=== PATIENT | male | born 1960 | race Caucasian/White ===

== ENCOUNTER 2017-02-03 11:30 | Emergency (ER) | payer MEDICARE ==
[2017-02-03 11:46] VITALS: BP 110/62
--- NOTE | 2017-02-03 12:22 | UC ---
Skin Complaint HPI - HPI Summary HPI Summary: Patient presents s/p presumed tick bite on Monday which he tried to take off himself with tweezers. He then went to his PCP who could not actually see him, but did call in doxycycline 200 mg and the patient did take it. He comes in because he is not sure if he got the tick out. He denies any rashes, joint pain , fever, night sweats since the bite. - History of Current Complaint Chief Complaint: UCSkin Time Seen by Provider: 02/03/17 12:05 Stated Complaint: TICK BITE Hx Obtained From: Patient Onset/Duration: Sudden Onset Skin Exposure Onset/Duration: Days Ago Location: Discrete - right side Aggravating Factor(s): Nothing Alleviating Factor(s): Nothing Associated Signs & Symptoms: Positive: Negative - Allergy/Home Medications Allergies/Adverse Reactions: Allergies Allergy/AdvReac Type Severity Reaction Status Date / Time Epinephrine Allergy Severe See Comment Verified 02/03/17 11:42 Bee Stings Allergy Intermediate Shortness Uncoded 02/03/17 11:42 of Breath Review of Systems Constitutional: Negative Skin: Negative Eyes: Negative ENT: Negative Respiratory: Negative Cardiovascular: Negative Gastrointestinal: Negative Genitourinary: Negative Motor: Negative Neurovascular: Negative Musculoskeletal: Negative Neurological: Negative Psychological: Negative All Other Systems Reviewed And Are Negative: Yes PMH/Surg Hx/FS Hx/Imm Hx Previously Healthy: Yes - Surgical History Surgical History: Yes Surgery Procedure, Year, and Place: rhinoseptoplasty - Family History Known Family History: Positive: None - Social History Occupation: Employed Full-time Lives: Alone Alcohol Use: None Substance Use Type: Marijuana Substance Use Comment - Amount & Last Used: "I smoke a bowl to sleep at night" Smoking Status (MU): Heavy Every Day Tobacco Smoker Type: Cigarettes Amount Used/How Often: 1 ppd Household Exposure Type: Cigarettes - Immunization History Most Recent Influenza Vaccination: fall and received pneumonia shot at thsat time. Most Recent Tetanus Shot: states will be do soon will check with md willard. Most Recent Pneumonia Vaccination: last fall 2012 Physical Exam Triage Information Reviewed: Yes Appearance: Well-Appearing Vital Signs: Initial Vital Signs Temp 98 F 02/03/17 11:44 Pulse 74 02/03/17 11:44 Resp 16 02/03/17 11:44 BP 110/62 02/03/17 11:44 Pulse Ox 100 02/03/17 11:44 Vital Signs Reviewed: Yes Eye Exam: Normal ENT Exam: Normal Neck exam: Normal Neck: Positive: 1 Respiratory Exam: Normal Cardiovascular Exam: Normal Musculoskeletal Exam: Normal Neurological Exam: Normal Psychological Exam: Normal Skin Exam: Normal Skin: Positive: Other - dried brown scab on right side, without tick. without erythema, induration, flucuance. periwound margins pink. no erythma migran. Course/Dx - Course Course Of Treatment: Patient presents s/p tick bite which he removed. He has taken doxycycline 200 mg once. He presents with a healing scab, and no clincial evidence of lymes disease. Lyme titer and rapid abdet obtained and pending. Discharge home in stable condition. told to have repeat lyme titer in one month at PCP. - Differential Diagnoses - Skin Complaint Differential Diagnoses: Other - tick bite - Diagnoses Provider Diagnoses: tick bite Discharge - Discharge Plan Condition: Stable Disposition: HOME Patient Education Materials: Tick Bite (ED) Referrals: Krish Willard MD [Primary Care Provider] -
== END 2017-02-03 12:24 | disposition home or self-care (01) ==
LOC: UCEAST 11:30
DX: S10.96XA Insect bite of unspecified part of neck, initial encounter (principal); W57.XXXA Bitten or stung by nonvenomous insect and other nonvenomous arthropods, initial encounter; Y92.9 Unspecified place or not applicable; Z11.4 Encounter for screening for human immunodeficiency virus [HIV]; Z88.8 Allergy status to other drugs, medicaments and biological substances; F17.210 Nicotine dependence, cigarettes, uncomplicated
CPT/HCPCS: 36415; 86618; 86703; 99211; G0463

== ENCOUNTER 2017-02-04 08:49 | Emergency (ER) | payer MEDICARE ==
[2017-02-04 09:04] VITALS: BP 131/80
--- NOTE | 2017-02-04 10:33 | UC ---
Upper Extremity HPI - HPI Summary HPI Summary: Contusion on right forearm ---began the day after having blood drawn - History of Current Complaint Chief Complaint: UCSkin Stated Complaint: SWOLLEN ARM Time Seen by Provider: 02/04/17 10:32 Hx Obtained From: Patient Onset/Duration: Sudden Onset, Lasting Days - 1 Severity Initially: Mild Severity Currently: Mild Pain Intensity: 2 Pain Scale Used: 0-10 Numeric Location Of Pain: Is Discrete @ - right forearm Character: Aching Aggravating Factor(s): Nothing Alleviating Factor(s): Nothing Associated Signs And Symptoms: Positive: Bruising Related History: Dominant Hand Right - Allergies/Home Medications Allergies/Adverse Reactions: Allergies Allergy/AdvReac Type Severity Reaction Status Date / Time Epinephrine Allergy Severe See Comment Verified 02/04/17 08:57 Bee Stings Allergy Intermediate Shortness Uncoded 02/04/17 08:57 of Breath Home Medications: Home Medications Albuterol HFA INHALER* [Ventolin HFA Inhaler*] 2 inhaler [facility] QID PRN 02/04/17 [ History Confirmed 02/04/17] PMH/Surg Hx/FS Hx/Imm Hx Previously Healthy: No Respiratory History: Asthma Psychological History: Depression - Surgical History Surgical History: Yes Surgery Procedure, Year, and Place: rhinoseptoplasty - Family History Known Family History: Positive: None - Social History Occupation: Disabled Lives: Alone Alcohol Use: None Substance Use Type: Marijuana Substance Use Comment - Amount & Last Used: "I smoke a bowl to sleep at night" Smoking Status (MU): Heavy Every Day Tobacco Smoker Type: Cigarettes Amount Used/How Often: 1 ppd/25 YEARS Household Exposure Type: Cigarettes - Immunization History Most Recent Influenza Vaccination: fall and received pneumonia shot at thsat time. Most Recent Tetanus Shot: states will be do soon will check with md willard. Most Recent Pneumonia Vaccination: last fall 2012 Review of Systems Constitutional: Negative Skin: Bruising - right forearm Eyes: Negative ENT: Negative Respiratory: Negative Cardiovascular: Negative Gastrointestinal: Negative Genitourinary: Negative Motor: Negative Neurovascular: Negative Musculoskeletal: Negative Neurological: Negative Psychological: Negative Is Patient Immunocompromised?: No All Other Systems Reviewed And Are Negative: Yes Physical Exam Triage Information Reviewed: Yes Appearance: Well-Appearing, No Pain Distress, Well-Nourished Vital Signs: Initial Vital Signs Temp 97.6 F 02/04/17 08:58 Pulse 73 02/04/17 08:58 Resp 16 02/04/17 08:58 BP 131/80 02/04/17 08:58 Pulse Ox 100 02/04/17 08:58 Vital Signs Reviewed: Yes Eye Exam: Normal Eyes: Positive: Conjunctiva Clear ENT Exam: Normal ENT: Positive: Normal ENT inspection, Hearing grossly normal. Negative: Nasal congestion, Nasal drainage, Tonsillar swelling, Tonsillar exudate, Trismus, Hoarse voice, Sinus tenderness Dental Exam: Normal Neck exam: Normal Neck: Positive: Supple, Nontender Respiratory Exam: Normal Respiratory: Positive: Chest non-tender, No respiratory distress, No accessory muscle use Cardiovascular Exam: Normal Cardiovascular: Positive: RRR, Pulses Normal, Brisk Capillary Refill Musculoskeletal Exam: Normal Musculoskeletal: Positive: Strength Intact, ROM Intact, No Edema Neurological Exam: Normal Neurological: Positive: Alert, Muscle Tone Normal Psychological Exam: Normal Skin Exam: Other Skin: Positive: Other - bruising right forearm Upper Extremity Course/Dx - Course Course Of Treatment: ice , laura wrap follow with pcp prn - Differential Dx/Diagnosis Provider Diagnoses: Contusion right fore arm Discharge - Discharge Plan Condition: Stable Disposition: HOME Patient Education Materials: Contusion in Adults (ED) Referrals: Krish Willard MD [Primary Care Provider] - If Needed
== END 2017-02-04 10:40 | disposition home or self-care (01) ==
LOC: UCEAST 08:49
DX: S50.11XA Contusion of right forearm, initial encounter (principal); W46.0XXA Contact with hypodermic needle, initial encounter; Y93.89 Activity, other specified; Y92.89 Other specified places as the place of occurrence of the external cause; J45.909 Unspecified asthma, uncomplicated; F32.9 Major depressive disorder, single episode, unspecified; F17.210 Nicotine dependence, cigarettes, uncomplicated
CPT/HCPCS: 99211; G0463

== ENCOUNTER 2017-04-30 09:15 | Emergency (ER) | payer MEDICARE ==
--- OUTSIDE RECORDS SUMMARY | 2017-04-30 09:23 | XMS REPORT ---
:1960 External Reference #:[id number] Author Organization [facility] Address [address] [address] Phone [phone] Care Team Providers Name Role Phone Jodi Hamilton MD Care Team Information Sales Analyst Unavailable Krish Anderson MD Primary Care Physician Unavailable Payers Type Date Identification Numbers Payment Provider Subscriber Medicare Primary Policy Number: [id number] Medicare Kristian Hoffmna PayID: [id number] [facility] [address] [place] [address] Problems Date Description Provider Status Onset: 04/20/2012 Bipolar disorder Krish Anderson M.D.,JESUS ALBERTO Active Onset: 04/17/2013 Cyclothymia Krish Anderson M.D.,JESUS ALBERTO Active Onset: 10/10/2013 Histrionic personality disorder Krish Anderson M.D., JESUS ALBERTO Active Note: per psychologist Onset: 11/17/2014 Mixed hyperlipidemia Luis Armando Dunn M.D., FACP Onset: 11/17/2014 Pruritus of skin Luis Armando Dunn M.D., FACP Onset: 01/24/2017 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 JESUS ALBERTO Ravi Note: with reversibility on PFTs Onset: 04/06/2017 Tobacco user Krish Anderson M.D.,FACP Active Onset: 04/18/2012 Tobacco user Krish Anderson M.D.,FACP Inactive Inactive: 01/17/2017 Onset: 01/17/2017 Moderate smoker (20 or less Krish Anderson M.D.,FACP Inactive per day) Inactive: 01/17/2017 Onset: 01/17/2017 Ex-smoker Krish Anderson M.D.,FACP Inactive Inactive: 04/06/2017 Family History Date Family Member(s) Problem(s) Comments Father due to Emphysema () Onset: (age 39 Years) Mother Heart Disease : (age 39 Years) Mother due to [place] Siblings 7 First Brother Alcoholism and drugs Social History Type Date Description Comments Marital Status Single Lives With Male Partner 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, and grocery Cigarette Use Current Cigarette Smoker 1 Pack since age 18 Daily ETOH Use 01/25/2016 Denies alcohol use Smoking Patient is a current smoker, smokes every day Recreational Drug Use Regularly uses Marijuana Daily Caffeine Consumes on average 2 cups of regular coffee per day Daily Caffeine Consumes on average 2 sodas per day Currently Active Patient is currently not sexually active Additional Info male partners General Hx Text no kids Allergies, Adverse Reactions, Alerts Date Description Reaction Status Severity Comments 02/04/2015 Epinephrine active 04/18/2012 NKDA inactive Medications Medication Date Status Form Strength Qnty SIG Indications Ordering Provider Ventolin HFA 01/24/ Active Aerosol 108(90Bas 1unit 2 puffs by Chad Arias 2016 e) s mouth four Eloisa Anderson, mcg/Act times a M.D.,FACP day as needed Valacyclovir HCL 01/17/ Active Tablets 1gm 90tab 1 po qd Krish Winters s Eloisa Anderson M.D.,FACP Cymbalta 01/17/ Active Caps DR 20mg 60cap 1 po qam Krish 2016 Part s for 2 wks Eloisa Anderson, then 2 by Trav,FACP mouth every morning Wrist Brace 12/21/ Active Misc 1unit use brace S63.502A Zsofia Ultra-Lite Carpal 2017 s at left Saulo, Tunnel/One Size wrist at [employer] night. Elidel 01/24/ Active Cream 1% 30gm topical to L30.9 Krish 2015 lips bid Eloisa Anderson, prn for 6 M.D.,FACP wks max Sarna 11/17/ Active Lotion 0.5-0.5% 100g topical as 698.8 Krish 2014 needed for Eloisa Anderson, pruritis M.D.,FACP Mupirocin 04/17/ Active Ointment 2% 30g topical Krish 2013 every day Eloisa Anderson, as needed M.D.,FACP Zonalon 12/24/ Active Cream 5% 45g topical 709.8 Krish 2012 four times Eloisa Anderson, a day as M.D.,FACP needed Aspirin Ec 04/18/ Active Tablets DR 81mg 30tab 1 po qd 786.59 Krish 2013 s Eloisa Anderson M.Kellie.,FACP Centrum / Active Tablets 100ta 1 po qd Unknown 0000 bs Clobetasol / Active Cream 0.05% 60gm apply thin Krish Propionate 0000 film twice DGriselda Anderson, daily M.D.,FACP Fluocinonide / Active Cream 0.05% [place], 0000 Sergei Medellin MD Doxycycline 02/01/ Hx Tablets 100mg 2tabs 2 tab PO x Krish Hyclate 2017 - dose D. Justin, 02/03/ M.D.,FACP 2017 Augmentin 01/17/ Hx Tablets 875-125mg 20tab by mouth Krish 2017 - s twice a D. Justin, 01/27/ day M.D.,FACP 2016 Valacyclovir HCL 08/03/ Hx Tablets 500mg 60tab 1 tab by Krish 2017 - s mouth D. Justin, 01/17/ every day, M.D.,FACP 2016 may increase to 2 tabs every day for 2 weeks for outbreaks Keflex 01/28/ Hx Capsules 500mg 21cap three Krish 2016 - s times a D. Justin, 02/04/ day for 7 M.D.,FACP 2016 days Nicoderm CQ 10/15/ Hx Patches 21mg/24HR 14uni apply 1 F17.200 Ant 2016 - 24HR ts patch Lao, 04/06/ daily [employer] 2018 every day x6 weeks, then apply 14mcg every day x 2 wks,then 7mcg every day x 2 weeks;star t on day Valacyclovir HCL 06/08/ Hx Tablets 1gm 90tab 1 tab by Krish 2015 - s mouth D. Inavale, 08/03/ daily M.D.,FACP 2016 Gabapentin 06/08/ Hx Capsules 100mg 240ca 1 tab po K13.0 Krish 2016 - ps qid for 4 D. Inavale, 08/05/ days, then M.D.,FACP 2016 increase to 2 qid for 4 days, then 3 qid for 4 days,then 4 qid Valacyclovir HCL 02/02/ Hx Tablets 1gm Compa, 2014 - Lashon 02/04/ MD Blas 2014 Amoxicillin 02/02/ Hx Tablets 875mg Compa, 2014 - Lashon 02/09/ MD Blas 2014 Cyclobenzaprine 12/16/ Hx Tablets 5mg 30tab 1 tablet M62.838 Kristian HCL 2014 - s by mouth Calle, 08/03/ three M.D. 2017 times a day as needed Naproxen 12/16/ Hx Tablets 250mg 30tab 1 tablet M62.838 Kristian 2014 - s by mouth Calle, 04/06/ twice a M.D. 2016 day as needed pain, with foods Duloxetine HCL 11/17/ Hx Caps DR 40mg 90cap 1 po qd K13.0 Krish 2015 - Part s D. Justin, 06/08/ M.D.,FACP 2016 Nicoderm CQ 08/15/ Hx Patches 21mg/24HR 1mon topical 305.1 Krish 2014 - 24HR every D. Inavale, 08/05/ morning M.D.,FACP 2015 Sulfamethoxazole/ 04/17/ Hx Tablets 800-160mg 20tab po bid 709.8 Chad Arias Trimethoprim DS 2013 - s D. Inavale, 10/10/ M.D.,FACP 2013 Lamotrigine 04/17/ Hx Tablets 25mg 120ta 1 tab po 301.13 Krish 2014 - bs qhs for 2 D. Justin, 10/10/ wks, then M.D.,FACP 2014 2 tabs qhs for 2 wks, then 4 tabs qhs Acetaminophen/Cod 10/17/ Hx Tablets 300-30mg 20tab 1-2 po tid 709.8 Krish moore #3 2012 - s prn DGriselda Anderson, 04/17/ M.D.,FACP 2013 Ibuprofen 10/15/ Hx Tablets 200mg 20tab qid prn Krish 2012 - s Eloisa Anderson, 12/24/ MNara.,FACP 2012 Oracea 09/05/ Hx Capsules 40mg po qd Krish 2013 - DR Eloisa Anderson, M.D.,FACP 2012 Acetaminophen/Cod 09/05/ Hx Tablets 300-30mg 12tab 1-2 po tid 709.8 Krish moore #3 2012 - s prn Eloisa Anderson, 10/15/ M.DGriselda,FACP 2013 Cyclobenzaprine 07/10/ Hx Tablets 5mg 30tab 1 tab po 524.64 Angelina HCL 2012 - [facility] Luz Elena, 09/05/ N.P. 2013 Cymbalta 07/10/ Hx Caps 20mg 60cap 2 caps by 296.80 Krish 2012 - Part s mouth Eloisa Anderson, 11/17/ every day M.DGriselda,FACP 2014 Nicoderm CQ 02/19/ Hx Patches 21mg/24HR 1mon topical Tushar Pascal 2011 - 24HR qasj Pinzon, 07/10/ M.D. 2012 Cymbalta / Hx Caps 20mg 30cap 1 po qd Krish - Part s Eloisa Anderson, MGriseldaDGriselda,FACP 2012 Vitamin D / Hx Capsules 1000Unit 30cap po qd Unknown 0000 - s 2014 Mupirocin / Hx Ointment 2% Joy, ly, MD 2012 Fluocinonide / Hx Solution 0.05% Joy, , MD 2013 Fish Oil / Hx Capsules Unsure 1 PO Daily Unknown Concentrate - 2015 Murospin / Hx cream Unknown - 2013 Hydroxyzine HCL / Hx Tablets 25mg 30tab take 1 Unknown - s tablet by 04/06/ mouth 3 2018 times daily as needed for itch Remeron / Hx Tablets 15mg 30tab 1 by mouth Krish - s at bedtime Eloisa Anderson, Trav,[facility] 2016 Vitamin C / Hx Capsules 500mg 2 by mouth Unknown 0000 - every day 2015 Cyclobenzaprine / Hx Tablets 10mg Compa, HCL 0000 - Lashon 03/30/ MD Blas 2016 Jackson Seal Root / Hx Capsules 500mg 1 daily Unknown 0000 - 2017 Valacyclovir HCL / Hx Tablets 500mg 30tab 1 by mouth Krish 0000 - s every day Eloisa Anderson, 06/08/ Trav,[facility] 2015 Immunizations CPT Code Status Date Vaccine Reaction Lot # [id number] Given 12/21/2016 Influenza Virus Vaccine, no immediate reaction, [id number] Quadrivalent, Split, pt tolerated well Preservative Free 86671 Given 01/25/2016 Influenza Virus Vaccine, [id number] Quadrivalent, Split Virus[place] [address] Given 01/14/2015 Influenza Virus Vaccine, [id number] Quadrivalent, Split, Preservative Free 35216 Given 01/17/2014 Flu Vaccine Split Virus [id number] Preservative Free For Indiv 3Yr Older 23345 Given 12/24/2012 Flu Vaccine Split Virus [id number] Preservative Free For Indiv 3Yr Older 47707 Given 04/18/2012 Pneumonia Vaccine [id number] Q2037 Given 02/20/2012 Fluvirin Im 3Yrs And Older [id number] 90561 Given 01/22/2008 Influenza Virus 3Yrs & Over 17335 Given 01/22/2008 Influenza Virus 3Yrs & Over 17297 Given 02/22/2006 Influenza Virus 3Yrs & Over Vital Signs Date Vital Result Comment 04/06/2017 Height 67.75 inches 5'7.75" Weight 143.00 lb Heart Rate 78 /min BP Systolic Sitting 140 mmHg BP Diastolic Sitting 80 mmHg Body Temperature 96.3 F O2 % BldC Oximetry 96 % BMI (Body Mass Index) 21.9 kg/m2 01/17/2017 Weight 142.00 lb Heart Rate 84 /min BP Systolic Sitting 120 mmHg BP Diastolic Sitting 60 mmHg Body Temperature 97.3 F O2 % BldC Oximetry 97 % 12/21/2016 Height 70 inches 5'10" Weight 142.12 lb Heart Rate 63 /min BP Systolic 126 mmHg BP Diastolic 62 mmHg Body Temperature 97.8 F O2 % BldC Oximetry 95 % BMI (Body Mass Index) 20.4 kg/m2 08/03/2016 Weight 145.38 lb Heart Rate 80 /min BP Systolic Sitting 120 mmHg BP Diastolic Sitting 90 mmHg BP Systolic Recheck 142 mmHg BP Diastolic Recheck 98 mmHg Body Temperature 96.9 F O2 % BldC Oximetry 92 % 01/25/2016 Weight 146.38 lb Heart Rate 87 /min BP Systolic Sitting 140 mmHg BP Diastolic Sitting 82 mmHg Body Temperature 96.0 F O2 % BldC Oximetry 97 % 10/16/2015 Height 68 inches 5'8" Weight 144.12 lb Heart Rate 76 /min BP Systolic Sitting 120 mmHg BP Diastolic Sitting 80 mmHg Body Temperature 97.2 F O2 % BldC Oximetry 95 % BMI (Body Mass Index) 21.9 kg/m2 08/06/2015 Height 68 inches 5'8" Weight 149.00 lb Heart Rate 82 /min BP Systolic Sitting 130 mmHg BP Diastolic Sitting 78 mmHg Body Temperature 96.4 F O2 % BldC Oximetry 98 % BMI (Body Mass Index) 22.7 kg/m2 06/09/2015 Height 68 inches 5'8" Weight 147.00 lb Heart Rate 85 /min BP Systolic Sitting 124 mmHg BP Diastolic Sitting 80 mmHg Respiratory Rate 15 /min Body Temperature 98.4 F BMI (Body Mass Index) 22.3 kg/m2 05/01/2015 Height 68 inches 5'8" Weight 144.50 lb Heart Rate 84 /min BP Systolic Sitting 147 mmHg BP Diastolic Sitting 91 mmHg Body Temperature 98.1 F O2 % BldC Oximetry 95 % BMI (Body Mass Index) 22.0 kg/m2 04/16/2015 Height 68 inches 5'8" Weight 143.00 lb Heart Rate 112 /min BP Systolic Sitting 124 mmHg BP Diastolic Sitting 80 mmHg Body Temperature 95.9 F O2 % BldC Oximetry 96 % BMI (Body Mass Index) 21.7 kg/m2 04/06/2015 Height 68 inches 5'8" Weight 144.25 lb Heart Rate 133 /min BP Systolic Sitting 130 mmHg BP Diastolic Sitting 84 mmHg Body Temperature 96.7 F O2 % BldC Oximetry 94 % BMI (Body Mass Index) 21.9 kg/m2 02/04/2015 Height 68 inches 5'8" 12/16/2014 Height 68 inches 5'8" Weight 141.38 lb Heart Rate 68 /min BP Systolic Sitting 112 mmHg BP Diastolic Sitting 62 mmHg Body Temperature 97.0 F O2 % BldC Oximetry 98 % BMI (Body Mass Index) 21.5 kg/m2 11/17/2014 Height 68 inches 5'8" Weight 140.12 lb Heart Rate 74 /min BP Systolic Sitting 132 mmHg BP Diastolic Sitting 87 mmHg Body Temperature 97.9 F O2 % BldC Oximetry 96 % BMI (Body Mass Index) 21.3 kg/m2 08/15/2014 Height 68 inches 5'8" Weight 142.38 lb Heart Rate 124 /min BP Systolic Sitting 122 mmHg BP Diastolic Sitting 84 mmHg Body Temperature 97.2 F O2 % BldC Oximetry 97 % BMI (Body Mass Index) 21.6 kg/m2 01/17/2014 Weight 139.50 lb Heart Rate 88 /min BP Systolic Sitting 138 mmHg BP Diastolic Sitting 68 mmHg Body Temperature 96.0 F O2 % BldC Oximetry 96 % 10/17/2013 Weight 139.00 lb Heart Rate 64 /min BP Systolic Sitting 126 mmHg BP Diastolic Sitting 76 mmHg Body Temperature 96.8 F 10/10/2013 Weight 135.50 lb Heart Rate 64 /min BP Systolic Sitting 122 mmHg BP Diastolic Sitting 80 mmHg Body Temperature 96.4 F 09/06/2013 Weight 143.00 lb Heart Rate 84 /min BP Systolic Sitting 120 mmHg BP Diastolic Sitting 72 mmHg 04/17/2013 Weight 145.00 lb Heart Rate 86 /min BP Systolic Sitting 124 mmHg BP Diastolic Sitting 72 mmHg 02/15/2013 Weight 144.25 lb Heart Rate 72 /min BP Systolic Sitting 112 mmHg BP Diastolic Sitting 62 mmHg 12/24/2012 Height 68 inches 5'8" Weight 141.50 lb Heart Rate 60 /min BP Systolic Sitting 116 mmHg BP Diastolic Sitting 66 mmHg BMI (Body Mass Index) 21.5 kg/m2 10/15/2012 Weight 142.50 lb Heart Rate 90 /min BP Systolic Sitting 128 mmHg BP Diastolic Sitting 72 mmHg 09/05/2012 Height 68 inches 5'8" Weight 147.25 lb Heart Rate 80 /min BP Systolic Sitting 112 mmHg BP Diastolic Sitting 68 mmHg BMI (Body Mass Index) 22.4 kg/m2 07/10/2012 Height 68.25 inches 5'8.25" Weight 144.00 lb Heart Rate 64 /min BP Systolic Sitting 134 mmHg BP Diastolic Sitting 82 mmHg BMI (Body Mass Index) 21.7 kg/m2 04/18/2012 Height 68 inches 5'8" Weight 145.00 lb Heart Rate 76 /min BP Systolic Sitting 128 mmHg BP Diastolic Sitting 80 mmHg BMI (Body Mass Index) 22.0 kg/m2 Results Test Date Test Result H/L Range Note Lipid Profile (Trig/Chol/HDL) 03/29/2017 Triglycerides 94 mg/dL 1, 2 Cholesterol 189 mg/dL 1, 3 HDL Cholesterol 43.4 mg/dL 1, 4 LDL Cholesterol 127 mg/dL 1, 5 Laboratory test finding 03/29/2017 Glucose 78 mg/dL 70-100 1, 6 Laboratory test finding 02/03/2017 Lyme Disease Serology Negative Negative 7 Laboratory test finding 03/30/2015 Erythrocyte Sed Rate 13 mm/Hr 0-20 C Reactive Protein 3.30 mg/L < 5.00 8 CBC Auto Diff 03/30/2015 White Blood Count 9.9 10^3/uL 3.5-10.8 Red Blood Count 5.00 10^6/uL 4.0-5.4 Hemoglobin 15.8 g/dL 14.0-18.0 Hematocrit 47 % 42-52 Mean Corpuscular Volume 94 fL 80-94 Mean Corpuscular Hemoglobin 32 pg High 27-31 Mean Corpuscular HGB Conc 33 g/dL 31-36 Red Cell Distribution Width 14 % 10.5-15 Platelet Count 274 10^3/uL 150-450 Mean Platelet Volume 8 um3 7.4-10.4 Abs Neutrophils 5.6 10^3/uL 1.5-7.7 Abs Lymphocytes 3.3 10^3/uL 1.0-4.8 Abs Monocytes 0.7 10^3/uL 0-0.8 Abs Eosinophils 0.2 10^3/uL 0-0.6 Abs Basophils 0.1 10^3/uL 0-0.2 Abs Nucleated RBC 0.01 10^3/uL Granulocyte % 56.6 % 38-83 Lymphocyte % 33.2 % 25-47 Monocyte % 7.1 % 1-9 Eosinophil % 2.2 % 0-6 Basophil % 0.9 % 0-2 Nucleated Red Blood Cells % 0.1 Laboratory test finding 02/02/2015 Wound Culture/Sensi SEE RESULT BELOW 9 Herpes Simplex PCR 02/02/2015 Herpes Source LIP HSV 1 PCR Negative Negative HSV 2 PCR Negative Negative 10 Lipid Profile (Trig/Chol/HDL) 11/11/2014 Triglycerides 132 mg/dL 11 Cholesterol 204 mg/dL 12 HDL Cholesterol 39.9 mg/dL 13 LDL Cholesterol 138 mg/dL 14 Laboratory test finding 11/11/2014 Glucose 87 mg/dL 70-100 Laboratory test finding 01/21/2014 Hepatitis C Antibody Nonreactive Nonreactive HIV 1/2 AB Evaluation 01/21/2014 HIV 1 2 Antibody Nonreactive Nonreactive 15 Laboratory test finding 10/10/2013 Acetaminophen < 15 g/mL 16 Alcohol < 10 mg/dL <10 Salicylate < 2.50 mg/dL <30 TSH (Thyroid Stimulating Horm) 0.77 IU/mL 0.34-5.60 Comp Metabolic Panel 10/10/2013 Sodium 140 mmol/L 133-145 Potassium 3.8 mmol/L 3.7-5.6 Chloride 106 mmol/L 101-111 Co2 Carbon Dioxide 28 mmol/L 22-32 Anion Gap 6 mmol/L 2-11 Glucose 86 mg/dL 70-100 Blood Urea Nitrogen 12 mg/dL 6-24 Creatinine 0.80 mg/dL 0.67-1.17 BUN/Creatinine Ratio 15.0 8-20 Calcium 9.6 mg/dL 8.6-10.3 Total Protein 7.1 g/dL 6.4-8.9 Albumin 4.1 g/dL 3.2-5.2 Globulin 3.0 g/dL 2-4 Albumin/Globulin Ratio 1.4 1-3 Total Bilirubin 0.40 mg/dL 0.2-1.0 Alkaline Phosphatase 72 U/L 34-104 Alt 15 U/L 7-52 Ast 17 U/L 13-39 Egfr Non- 101.9 >60 Egfr 131.1 >60 17 Urine Drug SCR ED 10/10/2013 Amphetamine Ur Screen None Detected None Detect & [facility] Barbiturates Urine Screen None Detected None Detect Benzodiazepine Urine Screen None Detected None Detect Urine Cannabinoids Screen Presumptive Posi <SEE NOTE> None Detect 18 Urine Cocaine Screen None Detected None Detect Urine Opiates Screen None Detected None Detect Urine Phencyclidine Screen None Detected None Detect 19 Urinalysis Profile 10/10/2013 Urine Color Straw Urine Appearance Clear Urine Specific [place] 1.004 Low 1.010-1.030 Urine pH 6.0 5-9 Urine Urobilinogen Negative Negative Urine Ketones Negative Negative Urine Protein Negative Negative Urine Leukocytes Negative Negative Urine Blood Negative Negative Urine Nitrite Negative Negative Urine Bilirubin Negative Negative Urine Glucose Negative Negative CBC Auto Diff 10/10/2013 White Blood Count 8.6 10^3/uL 4.8-10.8 Red Blood Count 4.79 10^6/uL 4.0-5.4 Hemoglobin 15.3 g/dL 14.0-18.0 Hematocrit 44 % 42-52 Mean Corpuscular Volume 92 fL 80-94 Mean Corpuscular Hemoglobin 32 pg High 27-31 Mean Corpuscular HGB Conc 35 g/dL 31-36 Red Cell Distribution Width 13 % 10.5-15 Platelet Count 248 10^3/uL 150-450 Mean Platelet Volume 7 um3 Low 7.4-10.4 Abs Neutrophils 5.2 10^3/uL 1.5-7.7 Abs Lymphocytes 2.6 10^3/uL 1.0-4.8 Abs Monocytes 0.6 10^3/uL 0-0.8 Abs Eosinophils 0.1 10^3/uL 0-0.6 Abs Basophils 0.1 10^3/uL 0-0.2 Abs Nucleated RBC 0.01 10^3/uL Granulocyte % 60.7 % 38-83 Lymphocyte % 29.9 % 25-47 Monocyte % 6.8 % 1-9 Eosinophil % 1.7 % 0-6 Basophil % 0.9 % 0-2 Nucleated Red Blood Cells % 0.1 Wound Culture/Sensi 04/03/2013 Wound/Misc (SEE NOTE) 20 Culture-Gram Stain Wound Culture/Sensi 12/06/2012 Wound/Misc (SEE NOTE) 21 Culture-Gram Stain HIV 1/2 AB Evaluation 12/06/2012 HIV 1 2 Antibody Nonreactive Nonreactive 22 1 FASTING 10 HOUR 2 Desirable: <150 Borderline High: 150-199 High: 200-499 Very High: >500 3 Desirable: <200 Borderline High: 200-239 High: >239 4 Low: <40 Desirable: 40-60 High: >60 5 Desirable: <100 Near Optimal: 100-129 Borderline High: 130-159 High: 160-189 Very High: >189 6 FASTING 10 HOUR 7 Serologic response to B. burgdorferi infection is not detected, but cannot rule out early infection during which low or undetectable antibody levels to B. burgdorferi may be present. If clinically indicated, a new serum specimen should be submitted in 7-14 days. Test Performed by: [facility] [address] [place] [address] 8 Acute inflammation: >10.00 9 SEE RESULT BELOW Name: KRISTIAN HOFFMAN : [address]: Lashon Chatman MD Acct: [id number] Unit: [id number] AGE: 54 Location: [facility] Re02/02/15 SEX: M Status: REG ER SPEC: [id number] SAM: 02/02/15-[address] [facility] [address]: Lashon Chatman MD REQ: [id number] RECD: 02/02/15 STATUS: LATRELL DOLAN DR: Krish Anderson MD _ SOURCE: [facility]: ORDERED: Culture Stain Procedure Result Verified Site Wound/Misc Gram Stain Final 02/02/15- 1759 ML 2+ Epithelial Cells No Neutrophils Observed 2+ Gram Positive Cocci Wound/Misc Culture Final 02/04/15- 1155 ML Organism 1 NORMAL PETE Quantity 1+ * ML - [facility] ([facility]) . END OF REPORT * ML=Testing performed at Main Lab DEPARTMENT OF PATHOLOGY, [address] [place] [address] Josue Pike M.D. Director [facility] # [id number] 10 ADDITIONAL INFORMATION Analyte Specific Reagent: This test was developed and its performance characteristics determined by [facility]. It has not been cleared or approved by the U.S. Food and Drug Administration. Test Performed by: [facility] - [address] [address] [place] Supervisor: Henri Mckeon II, M.D., Ph.D. 11 Desirable <150 Borderline high 150-199 High 200-499 Very High >500 12 Desirable <200 Borderline high 200-239 High >239 13 Low <40 Desirable: 40-60 High: >60 14 Desirable: <100 mg/dL Near Optimal: 100-129 mg/dL Borderline High: 130-159 mg/dL High: 160-189 mg/dL Very High: >189 mg/dL 15 It is recognized that currently available assays for the detection of antibodies to HIV-1 and/or HIV-2 may not detect all infected individuals. HIV antibodies may be undetectable in some stages of the infection and in some clinical conditions. The performance of this assay has not been established for populations of infants or children. Assayed by Chemiluminescence Microparticle Immunoassay on the Siemens Advia Centaur CP. Values obtained with different methods or kits cannot be used interchangeably.The diagnostic specificity of the ADVIA Centaur 1/O/2 Enhanced assay in the low risk population was 99.90% (6052/6058) with a 95% confidence interval of 99.78 to 99.96%. 16 Therapeutic concentration: <50 ug/mL Toxic concentration: >120 ug/mL 17 Because ethnic data is not always readily available, this report includes an eGFR for both -Americans and non- Americans. The National Kidney Disease Education Program (NKDEP) does not endorse the use of the MDRD equation for patients that are not between the ages of 18 and 70, are , have extremes of body size, muscle mass, or nutritional status, or are non- or non-. According to the National Kidney Foundation, irrespective of diagnosis, the stage of the disease is based on the level of kidney function: Stage Description GFR(mL/min/1.73 m(2)) 1 Kidney damage with normal or decreased GFR 90 2 Kidney damage with mild decrease in GFR 60-89 3 Moderate decrease in GFR 30-59 4 Severe decrease in GFR 15-29 5 Kidney failure <15 (or dialysis) 18 Presumptive Positive 19 The urine specimen was tested at the listed cutoffs: Drug class test level (ng/ml) Amphetamines 300 Barbituates 200 Benzodiazepine metabolites 200 Cocaine metabolites 300 Cannabinoids 25 Opiates 200 Pcp 25 This is a screening procedure. Positive results are not confirmed. Specimen was received without chain of custody. Results should be used for medical purposes only. 20 RUN DATE: 04/07/13 [facility] LAB LIVE PAGE 1 RUN TIME: [address] [place] [id number] Specimen Inquiry Name: KRISTIAN HOFFMAN : [address]: Isela Walter MD Acct: [id number] Unit: [id number] AGE: 52 Location: [facility] Re04/03/13 SEX: M Status: DEP ER SPEC: [id number] SAM: 04/03/13-[address] [facility] [address]: Isela Walter MD REQ: [id number] RECD: 04/03/13136 STATUS: LATRELL DOLAN DR: Krish Anderson MD _ SOURCE: ELBOW,LEFT SPDESC: ORDERED: Culture Stain Procedure Result Verified Site Wound/Misc Gram Stain Final 04/04/13- 0746 ML No Polys Observed No Organisms Seen Wound/Misc Culture Final 04/07/13- 852 ML No Growth Day 4 END OF REPORT * ML=Testing performed at Main Lab DEPARTMENT OF PATHOLOGY, [facility] [employer] [place], [place] [address] Josue Pike M.D. Director [facility] Permit #[id number] 21 RUN DATE: 12/08/12 [facility] LAB LIVE PAGE 1 RUN TIME: [address] [facility] [employer] [place], [place] [address] Specimen Inquiry Name: KRISTIAN HOFFMAN : [address]: Anthony Herman MD Acct: [id number] Unit: [id number] AGE: 52 Location: [facility] Re12/06/12 SEX: M Status: DEP ER SPEC: [id number] SAM: 12/06/12-[address]: Anthony Herman MD REQ: [id number] RECD: 12/06/121926 STATUS: LATRELL DOLAN DR: Krish Anderson MD _ SOURCE: [facility]: ORDERED: Culture Stain QUERIES: Medent Number [id number] Procedure Result Verified Site Wound/Misc Gram Stain Final 12/06/12- 1649 ML 4+ Epithelial Cells No Polys Observed No Organisms Seen Wound/Misc Culture Final 12/08/12- 1142 ML Organism 1 NORMAL PETE Quantity 1+ END OF REPORT * ML=Testing performed at Main Lab DEPARTMENT OF PATHOLOGY, [address] [place] [address] Josue Pike M.D. Director [facility] Permit #[id number] 22 It is recognized that currently available assays for the detection of antibodies to HIV-1 and/or HIV-2 may not detect all infected individuals. HIV antibodies may be undetectable in some stages of the infection and in some clinical conditions. The performance of this assay has not been established for populations of infants or children. Assayed by Chemiluminescence Microparticle Immunoassay on the AdMomentaur CP. Values obtained with different methods or kits cannot be used interchangeably.The diagnostic specificity of the ADVIA Centaur 1/O/2 Enhanced assay in the low risk population was 99.90% (6052/6058) with a 95% confidence interval of 99.78 to 99.96%. Procedures Date CPT Code Description Status Comment 01/18/2017 34525 Plethysmography Determination Completed Lung Volumes & Per Airway Resist 01/18/2017 10328 Pulmonary Completed Function><Bronchodil 04/15/2015 Diabetic Retinal Eye Exam Completed Document: 04/15/15 - Single Field Analysis RT LF Document: 04/15/15 - Consult Ophthalmology/[place] 03/30/2015 Diabetic Retinal Eye Exam Completed Document: 03/30/15 - Consult Ophthalmology/[place] 05/07/2012 Colonoscopy Completed 05/03/2012 60087 Stress Test Completed 04/18/2012 48848 EKG Tracing & Completed Interpretation 05/15/2007 18971 Holter Monitor Review (24 hr) Completed review & interp only 05/15/2007 23671 Holter Monitor Review (24 hr) Completed review & interp only 05/09/2007 21174 EKG Tracing & Completed Interpretation 05/09/2007 07916 EKG Tracing & Completed Interpretation Encounters Type Date Location Provider CPT E/M Dx Office Visit 01/17/2017 3:00p [facility] Internal Medicine Krish Anderson, 66754 J40 Meenakshi Holcomb M.D.,FACP F17.200 Office Visit 12/21/2016 3:00p [facility] Internal Isabella Vernon, KATIE 43678 S63.502A Medicine - [address] Z23 Office Visit 08/03/2016 1:40p [facility] Internal Krish Anderson, 76798 B00.89 Medicine - [place] Finn Ravi,FACP F17.200 R03.0 Office Visit 01/25/2016 11:30a [facility] Internal Medicine Krish Anderson, 61397 L30.9 - [place] Finn Ravi,FACP Z23 Office Visit 10/16/2015 1:00p [facility] [address] F17.200 - [address] Office Visit 08/06/2015 9:50a [facility] Internal Medicine Krish Anderson, 06104 K13.0 - [address] M.DGriselda,FACP B00.89 Office Visit 06/09/2015 7:40a [facility] Internal Krish Anderson, 72731 K13.0 Medicine - Zhang Ravi,FACP Office Visit 05/01/2015 2:40p [facility] Internal Krish Anderson, 66431 B00.89 Medicine - [address] M.Eloisa,FACP Office Visit 04/16/2015 9:40a [facility] Internal Kristian Calle M.D. 39232 H53.123 Medicine - [address] Office Visit 04/06/2015 3:40p [facility] Internal Krish Anderson, 98190 H53.123 Medicine - [place] Finn Ravi,FACP Office Visit 02/04/2015 4:20p [facility] Internal Krish Anderson, 77223 M54.5 Medicine - [address] Trav,FACP B00.89 Office Visit 12/16/2014 12:00p [facility] Internal Medicine Kristian Calle M.D. 04672 M62.838 - [address] L98.9 R10.30 Office Visit 11/17/2014 1:00p [facility] Internal Medicine Krish Anderson, 49492 V70.0 - [place] Finn Ravi,FACP 296.80 698.8 272.2 Office Visit 08/15/2014 8:20a [facility] Internal Krish Anderson, 59163 173.32 Medicine - [address] M.Eloisa,FACP 296.80 305.1 684 Office Visit 01/17/2014 1:40p [facility] Internal Medicine Krish Anderson, 74728 301.13 - Zhang Ravi,FACP V73.89 v04.81 Office Visit 10/17/2013 11:10a [facility] Internal Medicine Krish Anderson, 17158 296.80 - Zhang Ravi,FACP Office Visit 10/10/2013 11:10a [facility] Internal Medicine Krish Anderson, 75900 296.33 - Zhang Ravi,FACP Office Visit 09/06/2013 2:20p [facility] Internal Medicine Sheridan Odonnell M.D. 20042 709.8 - [place] 848.9 Office Visit 04/17/2013 11:50a [facility] Internal Medicine Krish Anderson, 87590 709.8 - Zhang Ravi,FACP 301.13 Office Visit 02/15/2013 9:00a [facility] Internal Medicine Krish Anderson, 78129 719.43 - [place] Ravi,FACP 698.8 296.80 Office Visit 12/24/2012 12:10p [facility] Internal Medicine Krish Anderson, 40931 709.8 - Zhang Ravi,FACP 296.80 v04.81 Office Visit 10/15/2012 9:30a [facility] Internal Medicine Krish Anderson, 31999 296.80 - Zhang Ravi,FACP 709.8 255.9 Office Visit 09/05/2012 1:00p [facility] Internal Medicine Krish Anderson, 05410 709.8 - Zhang Ravi,FACP 296.80 Office Visit 07/10/2012 12:30p [facility] Internal Medicine Angelina Laguna, N.P. 47689 524.64 - [place] Office Visit 04/18/2012 8:30a [facility] Internal Medicine Krish Anderson, 46542 V70.0 - Zhang Ravi,FACP 786.59 305.1 V76.51 V03.82 Office Visit 12/31/2008 1:30p DO Not Use Adriana Cabrera, 41821 916.4 District Manager [employer] [facility] [employer] N.P. Office Visit 11/28/2008 11:30a DO Not Use Adriana Cabrera, 07893 724.2 District Manager [employer] [facility] [employer] N.P[facility] Office Visit 11/24/2008 4:30p DO Not Use Lucie Jaeger, 40451 788.42 District Manager [employer] [facility] [employer] Sj.Eloisa 788.63 V74.5 Office Visit 06/03/2008 3:15p DO Not Use Lucie Jaeger, 30333 727.09 District Manager [employer] [facility] [employer] M.D. Office Visit 05/09/2008 11:00a DO Not Use Adriana Cabrera, 29980 372.30 District Manager [employer] [facility] [employer] N.P. 373.11 Office Visit 04/28/2008 10:45a DO Not Use Lucie Jaeger, 53422 V70.0 District Manager [employer] [facility] [employer] M.D. 788.41 786.2 272.0 311 Office Visit 02/11/2008 2:45p DO Not Use Adriana Cabrera, 41864 724.2 District Manager [employer] [facility] [employer] N[facility] Office Visit 01/17/2008 1:15p DO Not Use Lucie Jaeger, 25478 690.10 District Manager [employer] [facility] [employer] M.D. Office Visit 07/12/2007 3:30p DO Not Use Lucie Jaeger, 97377 443.9 District Manager [employer] [facility] [employer] M.D. 786.50 300.00 Office Visit 06/29/2007 11:30a DO Not Use District Manager [employer] [facility] [employer] Sharlene Rondon 38911 786.52 M.D., FACP Office Visit 06/04/2007 11:45a DO Not Use District Manager [employer] [facility] [employer] Lucie Jaeger, 50606 788.42 M.D. 788.1 Office Visit 05/11/2007 4:15p DO Not Use Lucie Jaeger, 15743 788.1 District Manager [employer] [facility] [employer] M.D. Office Visit 05/09/2007 10:00a DO Not Use Lucie Jaeger, 23587 786.50 District Manager [employer] [facility] [employer] M.D. 785.1 788.1 Office Visit 03/08/2007 1:30p DO Not Use Lucie Jaeger, 82404 788.1 District Manager [employer] [facility] [employer] M.D. Office Visit 01/01/2007 4:00p DO Not Use Adriana Cabrera, 37149 786.2 District Manager [employer] [facility] [employer] N.P. Office Visit 10/31/2006 2:00p DO Not Use Lucie Jaeger, 67775 780.79 District Manager [employer] [facility] [employer] M.D. 558.9 Office Visit 01/31/2006 4:15p DO Not Use Lucie Jaeger, 67776 788.1 Jamie Ravi Plan of Care 04/06/2017 - Krish Anderson M.D.,FACPZ00.01 Encounter for general adult medical exam w abnormal findingsComments:Flu vaccine received in the fall. Routine Health Maintenance up to date. Depression screen: on fileADL screen: negativeAdvance directives: HCP discussed, form to be obtained.Cognitive impairment screen: negative Reviewed [facility] DM/HM form.Follow up:Give HCP paper to patient Print DM/HM for [id number] Nicotine dependence, unspecified, esxunaxwmhbtnB91.9 Chronic obstructive pulmonary disease, fzsjebzvlwbF63.0 Tobacco useNew Xrays:CT Lung Screening-Low DoseComments:Discussed smoking cessation. Continue efforts to quit smoking. Have low dose CT scan done due to smoking history.F33.0 Major depressive disorder, recurrent, mildComments: Discussed restarting Cymbalta.
[2017-04-30 10:24] VITALS: BP 120/77
--- NOTE | 2017-04-30 11:21 | RAD ---
INDICATION: Cough COMPARISON: Most recent chest x-ray is dated January 18, 2017 TECHNIQUE: PA and lateral views of the chest were obtained. FINDINGS: The heart and mediastinum are normal in size and contour. The lungs appear hyperaerated with flattened diaphragm and increased retrosternal airspace. Otherwise the lungs are grossly clear. There is no evidence of large pleural effusion. Visualized bones are normal for the patient's age. There is no radiographic evidence of free air beneath the diaphragm IMPRESSION: IN THE CORRECT CLINICAL SETTING APPEARANCE TO THE LUNGS COULD BE SEEN WITH CHRONIC OBSTRUCTIVE PULMONARY DISEASE. PLEASE CORRELATE TO SMOKING HISTORY.
--- NOTE | 2017-04-30 11:28 | UC ---
Skin Complaint HPI - HPI Summary HPI Summary: 56 yo male with scalp rash x 7-10 days past two days it worsening rapidily initially crust area now oozing pus also with cough x 1 week feels fatigue and mild myalgias ? feverish - History of Current Complaint Chief Complaint: UCSkin Time Seen by Provider: 04/30/17 10:27 Stated Complaint: BLISTERS ON HEAD Hx Obtained From: Patient Onset/Duration: Gradual Onset, Worse Since - past 2 days Onset Severity: Mild Current Severity: Moderate Pain Intensity: 4 Pain Scale Used: 0-10 Numeric Location: Discrete Character: Swelling, Pain, Raised Aggravating Factor(s): Touch Associated Signs & Symptoms: Positive: Fever - ?, Chills, Cough, Drainage, Tenderness - Allergy/Home Medications Allergies/Adverse Reactions: Allergies Allergy/AdvReac Type Severity Reaction Status Date / Time MS Epinephrine [Epinephrine] Allergy Severe See Comment Verified 04/30/17 10:12 Bee Stings Allergy Intermediate Shortness Uncoded 04/30/17 10:12 of Breath Review of Systems Constitutional: Negative Skin: Rash Eyes: Negative ENT: Negative Respiratory: Negative Cardiovascular: Negative Gastrointestinal: Negative Genitourinary: Negative Motor: Negative Neurovascular: Negative Musculoskeletal: Negative Neurological: Negative Psychological: Negative Is Patient Immunocompromised?: No All Other Systems Reviewed And Are Negative: Yes PMH/Surg Hx/FS Hx/Imm Hx Previously Healthy: Yes - Surgical History Surgical History: Yes Surgery Procedure, Year, and Place: rhinoseptoplasty - Family History Known Family History: Positive: Hypertension - Social History Alcohol Use: None Substance Use Type: Marijuana Substance Use Comment - Amount & Last Used: "I smoke a bowl to sleep at night" Smoking Status (MU): Heavy Every Day Tobacco Smoker Type: Cigarettes Amount Used/How Often: 1 ppd/25 YEARS Household Exposure Type: Cigarettes - Immunization History Most Recent Influenza Vaccination: fall and received pneumonia shot at thsat time. Most Recent Tetanus Shot: states will be do soon will check with md willard. Most Recent Pneumonia Vaccination: last fall 2012 Physical Exam Triage Information Reviewed: Yes Appearance: Well-Appearing, No Pain Distress, Well-Nourished Vital Signs: Initial Vital Signs Temp 98.2 F 04/30/17 10:15 Pulse 77 04/30/17 10:15 Resp 16 04/30/17 10:15 BP 120/77 04/30/17 10:15 Pulse Ox 97 02/04/18 10:15 Eyes: Positive: Conjunctiva Clear ENT: Negative: Nasal congestion, Nasal drainage, TMs normal, Trismus, Muffled voice, Hoarse voice Respiratory: Positive: No respiratory distress, No accessory muscle use, Rhonchi , Wheezing Cardiovascular: Positive: RRR, No Murmur Musculoskeletal: Positive: ROM Intact, No Edema Neurological: Positive: Alert Psychological Exam: Normal Skin Exam: Other - impetiginous lesion vtx of scalp/oozing/not flutuant Course/Dx - Diagnoses Provider Diagnoses: impetigo....?MRSA. acute exacerbation of COPD Discharge - Discharge Plan Condition: Stable Disposition: HOME Prescriptions: DOXYcycline CAP(*) [DOXYcycline 100MG CAP(*)] 100 mg PO BID #20 cap Mupirocin 2% OINT* [Bactroban 2 % Oint*] 1 applic TOPICAL TID #1 tube Patient Education Materials: Impetigo (ED) Referrals: Krish Willard MD [Primary Care Provider] - Additional Instructions: a culture is pending we will treat your for a possible staph infection
== END 2017-04-30 11:24 | disposition home or self-care (01) ==
LOC: UCEAST 09:15
DX: L01.00 Impetigo, unspecified (principal); J44.1 Chronic obstructive pulmonary disease with (acute) exacerbation; Z88.8 Allergy status to other drugs, medicaments and biological substances; Z91.030 Bee allergy status; F12.90 Cannabis use, unspecified, uncomplicated; F17.210 Nicotine dependence, cigarettes, uncomplicated
CPT/HCPCS: 71046; 87070; 87077; 87186; 87205; 87640; 87641; 99212; G0463

== ENCOUNTER 2018-07-10 09:52 | Emergency (ER) | payer MEDICARE ==
[2018-07-10 10:01] VITALS: BP 141/81
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
[2018-07-12 01:10] LABS: Varicella Zoster Result Negative (Negative); Varicella Zoster Source NECK
== END 2018-07-10 10:43 | disposition home or self-care (01) ==
LOC: ED 09:52
DX: B02.9 Zoster without complications (principal); J44.9 Chronic obstructive pulmonary disease, unspecified; F50.9 Eating disorder, unspecified; F32.9 Major depressive disorder, single episode, unspecified
CPT/HCPCS: 87798; 99281

== ENCOUNTER 2019-04-08 08:29 | Inpatient (IN) | payer MEDICARE ==
[2019-04-08] MEDS ORDERED: Albuterol 2.5 MG/3 ML NEB.SOL* (0.083%) INH ONE (09:39)
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
[2019-04-08] MEDS ORDERED: Acetaminophen TAB* 325 MG PO ONE (09:48)
[2019-04-08 10:33] LABS: ABS Eosinophils 0.1 10^3/ul (0-0.6); ABS Lymphocytes 0.8 10^3/ul (1.0-4.8); ABS Monocytes 0.6 10^3/ul (0-0.8); ABS Neutrophils 4.9 10^3/ul (1.5-7.7); Eosinophil % 1.3 %; Hematocrit 43 % (42-52); Hemoglobin 14.8 g/dL (14.0-18.0); Lymphocyte % 12.2 %; Mean Corpuscular HGB Conc 34 g/dL (31-36); Mean Corpuscular Hemoglobin 32 pg (27-31); Mean Corpuscular Volume 94 fL (80-94); Nucleated Red Blood Cells % 0.1; Platelet Count 203 10^3/uL (150-450); Red Blood Count 4.59 10^6 /uL (4.18-5.48); Red Cell Distribution Width 14 % (10-15); White Blood Count 6.4 10^3/uL (3.5-10.8)
[2019-04-08 10:39] LABS: Albumin/Globulin Ratio 1.4 (1-3); BUN/Creatinine Ratio 11.6 (8-20); C Reactive Protein 20.66 mg/L (<8.01); Calcium 9.1 mg/dL (8.6-10.3); EGFR African American 110.9 (>60); EGFR Non-African American 91.7 (>60); Globulin 2.8 g/dL (2-4); Potassium 4.5 mmol/L (3.5-5.0); Total Bilirubin 0.4 mg/dL (0.2-1.0); Total Protein 6.8 g/dL (6.4-8.9)
[2019-04-08 10:40] LABS: Troponin I 0.01 ng/mL (<0.03)
[2019-04-08 10:59] LABS: Influenza A Molecular NEGATIVE (Negative); Influenza B Molecular NEGATIVE (Negative)
[2019-04-08] MEDS ORDERED: Albuterol/Ipratropium NEB.SOL* Albuterol 2.5 MG/Ipratropium 0.5 MG 3 ML INH ONE (11:08)
[2019-04-08] MEDS ORDERED: methylPREDNISolone SOD 40 MG* 1 ML VIAL IV ONE (12:55)
[2019-04-08] MEDS ORDERED: NS 0.9% 1000 ML** 1,000 ML IV ONE ×2 (12:55→20:56)
[2019-04-08] MEDS ORDERED: Nicotine* 2MG (FRUIT FLAVOR) GUM PO PRN (15:59)
[2019-04-08] MEDS ORDERED: Nicotine PATCH 21 MG/24 HR* PATCH TRANSDERM PRN (15:59)
[2019-04-08] MEDS ORDERED: Iohexol 350* (CONTRAST) 500 ML MDV IV ONE (16:31)
[2019-04-08] MEDS ORDERED: Albuterol HFA INHALER* 8 gm MDI INH PRN (16:41)
[2019-04-08] MEDS ORDERED: Azithromycin 500 mg/250 ml NS 500 MG/250 ML BAG IVPB ONE (16:46)
[2019-04-08] MEDS: Enoxaparin(*) 40 MG/0.4 ML SYR SUBCUT SCH (18:26)
[2019-04-08] MEDS ORDERED: LORazepam TAB(*) 0.5 MG PO ONE (18:29)
--- NOTE | 2019-04-08 18:32 | HP ---
CC: Naya Sherman MD * HISTORY AND PHYSICAL: DATE OF ADMISSION: 04/08/19 PRIMARY CARE PROVIDER: Naya Sherman MD ATTENDING PHYSICIAN: Chelsea Drew DO * (dictated by JOSÉ LUIS Fishman ). CHIEF COMPLAINT: Shortness of breath. HISTORY OF PRESENT ILLNESS: Mr. Whitlock is a 58-year-old male with past medical history of recently diagnosed COPD, history of alcohol abuse and depression, who presented to the ER today with complaints of shortness of breath. The patient notes that he has had approximately 1 year of shortness of breath and coughing, which has worsened since Monday. He assumes he had the flu because he was feeling extremely fatigued and had new onset productive cough (typically, the patient has a nonproductive cough) since Monday. He complains of light sweats, described as a warm feeling and chills, but notes that he has not measured his temperature. He believes he is sleeping well at night without any difficulties. He denies PND. The patient notes that he progressively worsened since Monday and reports taking 1 dose of amoxicillin 500 yesterday, which he reports some improvement in his shortness of breath after that, but then he became worse again. He denies lower extremity edema. He denies recent injury or recent flights. His last car ride was to [place], [place] approximately 3 months ago. He does complain of right calf pain, which is intermittent for the last 3 days. His describes his pain as a cramping. He complains of palpitations x3 days as well. In terms of his shortness of breath, he reports that his albuterol inhaler does help with relief of his shortness of breath some. In the ER, the patient received a full workup. CBC was grossly abnormal as was chem panel, although the patient has an CRP of 20.66. Influenza A and B are negative. EKG revealed sinus tachycardia without ST changes. Chest x-ray shows no active cardiopulmonary disease and positive for hyperinflation. The patient is tachycardic with oxygen saturation around 90 on room air. He is afebrile without leukocytosis. In the ER, the patient was given acetaminophen 650 mg, albuterol nebulizer, DuoNeb, methylprednisolone 40 IV, prednisone 50 p.o. and 1 L of normal saline. The hospitalist team was asked to evaluate the patient for admission. PAST MEDICAL HISTORY: 1. COPD. 2. History of alcohol and drug abuse. 3. Depression. 4. Eating disorder. PAST SURGICAL HISTORY: Rhinoplasty. HOME MEDICATIONS: Albuterol HFA inhaler 2 puffs inhalation q.4 hours p.r.n. shortness of breath. DRUG ALLERGIES: DIPHENHYDRAMINE and BEE STING. FAMILY HISTORY: Mother and father both had MIs. No family history of CVA, cancer, diabetes mellitus, SOCIAL HISTORY: The patient has a tobacco use history of approximately 25-pack years. He does not use alcohol. He uses marijuana daily. He is disabled. He is single without any children and lives with a roommate. At this point, he is unable to appoint a surrogate decision maker and would like to think about this. REVIEW OF SYSTEMS: A 14-point review of systems has been performed and all the pertinent positives and negatives are in the HPI. Other systems are negative. PHYSICAL EXAMINATION GENERAL: Mr. Whitlock is a well-developed, well-nourished, thin, middle-aged white male, who is sitting up in bed. He appears to be mildly dyspneic, but is in no acute distress. He is on room air. He is intermittently tearful. HEENT: PERRL. EOMI. Hearing is grossly intact. Oral mucous membranes are moist. There are no lesions. Pharynx is clear. The tongue is at midline. Palate elevates symmetrically. PULMONARY: Symmetrical chest expansion without use of accessory muscles. Diminished breath sounds throughout bilateral lungs. There are faint end- expiratory wheezes throughout bilateral lung morel. There are no rhonchi or rales. CARDIOVASCULAR: Sinus tachycardia with S1, S2 present. There are no murmurs, rubs, clicks or gallops. There is no JVD or peripheral edema. ABDOMEN: Flat. Bowel sounds in all quadrants. Soft and nontender to palpation. MUSCULOSKELETAL: Homans sign negative bilaterally. Calves nontender to palpation bilaterally. NEUROLOGIC: The patient is awake. He is alert and oriented x3 with cranial nerves II through XII grossly intact. He is able to move all of his extremities. DIAGNOSTIC STUDIES AND LABORATORY DATA: WBC 6.4, hemoglobin 14.8, hematocrit 43 , MCV 94. Sodium 140, potassium 4.5, chloride 105, creatinine 0.86 , BUN 10, CRP 20.66, BNP 27. Influenza A and B negative. EKG: Rate 103, sinus tachycardia without ST changes. Chest x-ray, 2 views, impression: No active disease is noted. Likely nipple shadow is noted in the mid lung morel bilaterally. Hyperinflated lung morel are noted. ASSESSMENT AND PLAN: 1. Mr. Whitlock is a 58-year-old male with a past medical history of recently diagnosed chronic obstructive lung disease, who presented to the ER today with complaints of shortness of breath and changes in his chronic cough. He has associated sinus tachycardia. With this finding, there is concern for pulmonary embolism. A CTA of the chest has been ordered. This could also represent chronic obstructive lung disease exacerbation. The patient does report a change in his baseline cough. He will be started on azithromycin. He has received both IV and oral prednisone at this time and will be continued on prednisone 50 starting tomorrow for a total of 5 days. His only chronic obstructive lung disease medication is a rescue inhaler, therefore he will be started on Stiolto. Smoking cessation has been encouraged. 2. Tobacco abuse. The patient is declining patches or gums, but these will be placed on his MAR on a p.r.n. basis for cravings. 3. DVT prophylaxis. According to the DVT risk assessment, the patient scores 2 , placing him at moderate risk. He has been started on Lovenox. 4. Code status. Discussed this with the patient and he is unable to make a decision regarding his code status at this time and would like to consider. TIME SPENT: Approximately 60 minutes was spent on this admission, greater than half of that time spent face to face with the patient obtaining history, performing physical and reviewing the plan of care. The case has been discussed with my attending, Dr. Drew, who is in agreement with the plan of care. JOSÉ LUIS FISHMAN [id number]/[facility] #: [id number] SUDHA
[2019-04-08 20:06] LABS: TSH (Thyroid Stimulating Horm) 1.31 mcIU/mL (0.34-5.60)
[2019-04-08] MEDS: Albuterol/Ipratropium NEB.SOL* Albuterol 2.5 MG/Ipratropium 0.5 MG 3 ML INH PRN (20:28)
[2019-04-08] MEDS: Metoprolol Tartrate IV* 1 MG/ML 5 ML VIAL IV PRN (21:15)
[2019-04-08] MEDS: Nicotine Patch Removal NOTE PATCH OFF SCH (21:26)
[2019-04-08] MEDS: Benzonatate CAP* 100 MG PO PRN (22:57)
[2019-04-09] MEDS: Acetaminophen TAB* 325 MG PO PRN (01:07)
[2019-04-09] MEDS: guaiFENesin/CODIENE 100mg/10mg 5 ML UDC PO PRN ×4 (01:07→21:18)
[2019-04-09] MEDS: Albuterol/Ipratropium NEB.SOL* Albuterol 2.5 MG/Ipratropium 0.5 MG 3 ML INH PRN ×3 (01:35→08:50)
--- NOTE | 2019-04-09 08:34 | PN ---
Subjective Date of Service: 04/09/19 Interval History: Pt feels SOB and anxious due to that.Occasional dry cough Objective Active Medications: Acetaminophen (Tylenol Tab*) 650 mg PO Q4H PRN PRN Reason: mild to moderate pain Last Admin: 04/09/19 01:07 Dose: 650 mg Albuterol (Ventolin Hfa Inhaler*) 2 puff INH Q4H PRN PRN Reason: SOB/WHEEZING Albuterol/Ipratropium (Duoneb (Albuterol 2.5 Mg/Ipratropium 0.5 Mg)) 1 neb INH [id number] AWAKE PRN PRN Reason: sob/wheexing Last Admin: 04/09/19 05:45 Dose: 1 neb Albuterol/Ipratropium (Duoneb (Albuterol 2.5 Mg/Ipratropium 0.5 Mg)) 1 neb INH [id number] AWAKE [facility] Benzonatate (Tessalon Cap*) 100 mg PO BID PRN PRN Reason: COUGH Last Admin: 04/08/19 22:57 Dose: 100 mg Enoxaparin Sodium (Lovenox(*)) 40 mg SUBCUT Q24H [facility] Last Admin: 04/08/19 18:26 Dose: 40 mg Guaifenesin/Codeine Phosphate (Robitussin Ac 100mg/10mg In 5 Ml) 10 ml PO Q4H PRN PRN Reason: COUGH Last Admin: 04/09/19 05:20 Dose: 10 ml Azithromycin 250 mg/ Sodium (Chloride) 250 mls @ 250 mls/hr IVPB Q24H [facility] Stop: 04/12/19 17:59 Metoprolol Tartrate (Lopressor Iv*) 5 mg IV Q6H PRN PRN Reason: HEART RATE/PULSE GREATER THAN: Last Admin: 04/08/19 21:15 Dose: 5 mg Nicotine (Nicotine Patch 21 Mg/24 Hr*) 1 patch TRANSDERM DAILY@0800 PRN PRN Reason: CRAVINGS Nicotine Polacrilex (Nicotine Gum*) 2 mg PO Q2H PRN PRN Reason: CRAVING Pharmacy Profile Note (Nicotine Patch Removal Note*) 1 note PATCH OFF 2100 [facility] Last Admin: 04/08/19 21:26 Dose: Not Given Prednisone (Deltasone 50 Mg Tab) 50 mg PO DAILY [facility] Stop: 04/12/19 09:01 Last Admin: 04/09/19 08:09 Dose: 50 mg Tiotropium [place]/Olodaterol (Stiolto Respimat Inh [place] (60 Puff)) 2 puff INH DAILY [facility] Vital Signs - 8 hr 04/09/19 04/09/19 04/09/19 01:36 03:09 05:46 Temperature 98.1 F Pulse Rate 71 111 70 Respiratory 25 18 20 Rate Blood Pressure 126/68 (mmHg) O2 Sat by Pulse 98 96 96 Oximetry 04/09/19 04/09/19 07:32 08:00 Temperature 97.4 F Pulse Rate 114 Respiratory 20 20 Rate Blood Pressure 135/67 (mmHg) O2 Sat by Pulse 95 Oximetry Oxygen Devices in Use Now: Nasal Cannula Appearance: 58 yo M in nAD, AAOx3, in tripod position, barrell chest noted Eyes: No Scleral Icterus, PERRLA Ears/Nose/Mouth/Throat: NL Teeth, Lips, Gums, Mucous Membranes Moist Neck: NL Appearance and Movements; NL JVP, Trachea Midline Respiratory: - - decreased breath sounds with wheezes b/l mid /lower lungs Cardiovascular: NL Sounds; No Murmurs; No JVD, RRR, - - tachy Abdominal: NL Sounds; No Tenderness; No Distention Lymphatic: No Cervical Adenopathy Extremities: No Edema, No Clubbing, Cyanosis Skin: No Rash or Ulcers, No Nodules or Sclerosis Neurological: Alert and Oriented x 3, NL Muscle Strength and Tone Result Diagrams: 04/08/19 10:10 04/08/19 10:10 Assess/Plan/Problems-Billing Assessment: 58 yo M with h/o smoking 40 + pack years on disability due to bipolar disease presents with COPD exacerbation - Patient Problems (1) COPD exacerbation Comment: resulting in acute hypoxemic respiratory failure. 02 sat on 3L at 94% Still increased WOB and wheezing. will start nebs Vasu cont Azithro for poss bronchitis(CTA lungs shows no PE and mildly enlarged LN) will switch Prednisone to Solu Medrol (2) Tobacco abuse Comment: nicotine patch pt educated re: smoking cessation Plans to stop smoking at d/c (3) DVT prophylaxis Comment: lovenox (4) Tachycardia Comment: related to anxiety/SOB, cont to monitor Status and Disposition: OBV will be switched to inpatient
[2019-04-09] MEDS: Albuterol/Ipratropium NEB.SOL* Albuterol 2.5 MG/Ipratropium 0.5 MG 3 ML INH SCH ×4 (08:55→23:37)
[2019-04-09] MEDS ORDERED: Morphine INJ* 2 MG/ML 1 ML SYRINGE (TWO MG - NEW SYRINGE VERSION) IV ONE (09:39)
[2019-04-09] MEDS ORDERED: LORazepam TAB(*) 0.5 MG PO PRN (09:40)
[2019-04-09 10:45] LABS: Troponin I 0.04 ng/mL (<0.03)
[2019-04-09] MEDS: methylPREDNISolone SOD 40 MG* 1 ML VIAL IV SCH ×2 (12:20→20:01)
[2019-04-09] MEDS: Metoprolol Tartrate IV* 1 MG/ML 5 ML VIAL IV PRN (12:57)
[2019-04-09 13:32] LABS: Troponin I 0.04 ng/mL (<0.03)
[2019-04-09 17:16] LABS: Troponin I 0.04 ng/mL (<0.03)
[2019-04-09] MEDS: Enoxaparin(*) 40 MG/0.4 ML SYR SUBCUT SCH (17:25)
[2019-04-09] MEDS: Azithromycin IV(*) 250 MG in NS 0.9% 250 ML* 250 ML IVPB SCH (17:26)
[2019-04-09] MEDS: Tiotropium Brom/Olodaterol MDI INH SCH (19:36)
[2019-04-09] MEDS: Nicotine Patch Removal NOTE PATCH OFF SCH (20:27)
[2019-04-10] MEDS: methylPREDNISolone SOD 40 MG* 1 ML VIAL IV SCH ×3 (03:40→19:14)
[2019-04-10] MEDS: Albuterol/Ipratropium NEB.SOL* Albuterol 2.5 MG/Ipratropium 0.5 MG 3 ML INH SCH ×3 (07:25→19:11)
[2019-04-10] MEDS: Tiotropium Brom/Olodaterol MDI INH SCH (07:26)
--- NOTE | 2019-04-10 11:34 | PN ---
Subjective Date of Service: 04/10/19 Interval History: Pt feels better , still anxious. SOB "feels better", but his 02 requirement is higher. Pt feels that he would benefit from psychiatry eval Objective Active Medications: Acetaminophen (Tylenol Tab*) 650 mg PO Q4H PRN PRN Reason: mild to moderate pain Last Admin: 04/09/19 01:07 Dose: 650 mg Albuterol (Ventolin Hfa Inhaler*) 2 puff INH Q4H PRN PRN Reason: SOB/WHEEZING Albuterol/Ipratropium (Duoneb (Albuterol 2.5 Mg/Ipratropium 0.5 Mg)) 1 neb INH [id number] AWAKE PRN PRN Reason: sob/wheexing Last Admin: 04/09/19 08:50 Dose: 1 neb Albuterol/Ipratropium (Duoneb (Albuterol 2.5 Mg/Ipratropium 0.5 Mg)) 1 neb INH [id number] AWAKE [facility] Last Admin: 04/10/19 07:25 Dose: 1 neb Benzonatate (Tessalon Cap*) 100 mg PO BID PRN PRN Reason: COUGH Last Admin: 04/08/19 22:57 Dose: 100 mg Enoxaparin Sodium (Lovenox(*)) 40 mg SUBCUT Q24H [facility] Last Admin: 04/09/19 17:25 Dose: 40 mg Guaifenesin/Codeine Phosphate (Robitussin Ac 100mg/10mg In 5 Ml) 10 ml PO Q4H PRN PRN Reason: COUGH Last Admin: 04/09/19 21:18 Dose: 10 ml Azithromycin 250 mg/ Sodium (Chloride) 250 mls @ 250 mls/hr IVPB Q24H [facility] Stop: 04/12/19 17:59 Last Admin: 04/09/19 17:26 Dose: 250 mls/hr Lorazepam (Ativan Tab(*)) 0.5 mg PO Q6H PRN PRN Reason: ANXIETY Last Admin: 04/09/19 09:54 Dose: 0.5 mg Methylprednisolone Sodium Succinate (Solu-Medrol 40 Mg) 40 mg IV Q8H [facility] Last Admin: 04/10/19 03:40 Dose: 40 mg Metoprolol Tartrate (Lopressor Iv*) 5 mg IV Q6H PRN PRN Reason: HEART RATE/PULSE GREATER THAN: Last Admin: 04/09/19 12:57 Dose: 5 mg Nicotine (Nicotine Patch 21 Mg/24 Hr*) 1 patch TRANSDERM DAILY@0800 PRN PRN Reason: CRAVINGS Nicotine Polacrilex (Nicotine Gum*) 2 mg PO Q2H PRN PRN Reason: CRAVING Pharmacy Profile Note (Nicotine Patch Removal Note*) 1 note PATCH OFF 2100 [facility] Last Admin: 04/09/19 20:27 Dose: Not Given Tiotropium [place]/Olodaterol (Stiolto Respimat Inh [place] (60 Puff)) 2 puff INH DAILY [facility] Last Admin: 04/10/19 07:26 Dose: 2 puff Vital Signs - 8 hr 04/10/19 04/10/19 04/10/19 03:45 07:28 07:43 Temperature 98 F Pulse Rate 105 103 Respiratory 18 18 23 Rate Blood Pressure 126/66 (mmHg) O2 Sat by Pulse 97 97 Oximetry 04/10/19 08:16 Temperature 98.1 F Pulse Rate 114 Respiratory 23 Rate Blood Pressure 115/80 (mmHg) O2 Sat by Pulse 97 Oximetry Oxygen Devices in Use Now: Nasal Cannula Appearance: 58 yo m in nAD, AAOx3, decreased WOB c/w yesterday Eyes: No Scleral Icterus, PERRLA Ears/Nose/Mouth/Throat: NL Teeth, Lips, Gums, Mucous Membranes Moist Neck: NL Appearance and Movements; NL JVP, Trachea Midline Respiratory: Symmetrical Chest Expansion and Respiratory Effort, - - bibasiliar wheezes Cardiovascular: NL Sounds; No Murmurs; No JVD, RRR Abdominal: NL Sounds; No Tenderness; No Distention Lymphatic: No Cervical Adenopathy Extremities: No Edema, No Clubbing, Cyanosis Skin: No Rash or Ulcers, No Nodules or Sclerosis Neurological: Alert and Oriented x 3, NL Muscle Strength and Tone Result Diagrams: 04/08/19 10:10 04/08/19 10:10 Assess/Plan/Problems-Billing Assessment: 58 yo M with h/o smoking 40 + pack years on disability due to bipolar disease presents with COPD exacerbation - Patient Problems (1) COPD exacerbation Comment: resulting in acute hypoxemic respiratory failure. 02 sat on 4L at 98% Still wheezing. cont nebs Vasu cont Azithro for poss bronchitis(CTA lungs shows no PE and mildly enlarged LN) cont Solu Medrol (2) Tobacco abuse Comment: nicotine patch pt educated re: smoking cessation Plans to stop smoking at d/c (3) Tachycardia Comment: related to anxiety/SOB, cont to monitor episode of CP when in resp distress on 04/09/19, trop of 0.04-likely demand ischemia will get Echo (4) Anxiety Comment: pt has h/o bipolar, now very anxious due to his ongoing health problems. will ask psychiatry to see (5) DVT prophylaxis Comment: lovenox Status and Disposition: OBV will be switched to inpatient
[2019-04-10] MEDS ORDERED: Perflutren Lipid Microsphere* 3 ML VIAL ONE (15:54)
--- NOTE | 2019-04-10 16:20 | CONS ---
CONSULTATION REPORT: DATE OF CONSULT: 04/10/19 ATTENDING CLINICIAN: Dr. Britany Catalan. CONSULTING PHYSICIAN: Dr. Gigi Chávez. REASON FOR CONSULT: The patient with a history of bipolar, experiencing anxiety. SUBJECTIVE HISTORY: The patient is a 58-year-old single homosexual white male with a reported history of bipolar disorder, who has had multiple psychiatric admissions to [facility] as well as [facility], currently admitted to the hospitalist service for a COPD exacerbation, who has been experiencing significant anxiety. The primary team noted that despite his significant psychiatric history, he is not on any current scheduled psychotropic medications and reports that he was self- medicating with copious amounts of cigarettes. This of course has led to significant pulmonary disease and he acknowledges at this time that he can no longer rely on cigarettes to cope. On examination, the patient does endorse anxious mood. He has complaints about the medical care that he has been receiving in the outpatient environment, stating "I don't feel like I am being served well, I just can't seem to connect. " The patient states that he is unaware of any other significant psychosocial stressors with the exception of his medical issues which are worsening. He does endorse occasional passive suicidal ideations, but not recently and he denies having any plans or intentions for self-harm. He does indicate that he has some guilt over a homosexual affair that he has been having for the past 14 years. Although the patient has a remote history of multiple manic episodes, he states that his last incident of kayla occurred back in 2013 and he denies recent distractibility, indiscrete behavior or euphoria. Symptomatically, he endorses some guilt as well as decreased energy; however, he is denying sleep disturbance, anhedonia, concentration problems, appetite disturbance, psychomotor retardation, or suicidal ideations. When asked what he feels would be helpful at this time, he is willing to consider resumption of duloxetine once daily which he states was the most helpful of all of his historic psychotropic medication trials. PAST PSYCHIATRIC HISTORY: The patient had [facility] admissions several times in the , also admissions in 1999, 2002, 2008 and 2013. He states that he had 2 separate longer term psychiatric hospitalizations at [facility] in [place], [place] in the . Previous medication trials included duloxetine, bupropion, sertraline, quetiapine and mirtazapine. He has also been described as having both narcissistic and histrionic personal traits by previous psychiatric providers here in the hospital. The patient does have a history of suicidal behavior in the form of multiple overdoses on medications, but none over the past 10 year period. For 5 years approximately, he saw psychologist, Dr. Hugo Lee in [place], [place], however, that treatment ended in 2013. SUBSTANCE ABUSE HISTORY: Significant for occasional cannabis misuse. He states that he last drank alcohol in 1994. Tobacco use is about 1 pack per day. PAST MEDICAL HISTORY: Significant for COPD and genital herpes. FAMILY HISTORY: Significant for a father who is a severe alcoholic. SOCIAL HISTORY: The patient grew up in [place], [place]. He was the 7th of 8 total siblings, all of which who had the same mother. His 4 oldest siblings had a different father whereas he has the same father of the youngest 4. The patient did graduate high school and he has some college. He never and never had children. He is homosexual and has had the same partner for over 40 years. As previously mentioned, he has been having an affair for the past 14 years. The patient denies any history of service. Currently, he is living alone in a house in [place]. He was raised [facility], but is not currently restoration. He does have a legal charge for shop lifting in 1983, but no other legal entanglements. MENTAL STATUS EXAM: The patient is a slender, graying white male with spectacles, wearing an oxygen mask, who does seem to be somewhat short of breath. He is calm, cooperative, makes good eye contact. He is expressive. Speech is mildly overproductive. Mood would appear to be anxious with an anxious affect. Thought process is linear and goal directed. Thought content is significant for his desire to receive treatment for his COPD and be discharged home, so that he can watch a basketball game by his nephew on Monday. He is denying suicidal or homicidal ideations. He denies auditory or visual hallucinations. Insight and judgment are fair given his willingness to resume medication therapy. Cognitively, he is awake and alert with what would appear to be an average intellect. DIAGNOSES: Okatie I: Unspecified anxiety disorder, bipolar disorder by history. Okatie II: Deferred. IMPRESSION: The patient is a 58-year-old single homosexual white male with a history of multiple admissions for bipolar disorder, who is currently admitted to the hospitalist service for chronic obstructive pulmonary disease exacerbation and has been presenting with significant anxiety. As previously mentioned, the patient is not on any current psychotropic medications. He is willing to resume a trial of duloxetine at this time and feels that this was the best historic medication that he tried. RECOMMENDATIONS TO PRIMARY TEAM: Psychiatry will resume duloxetine at the dose of 20 mg daily with his first dose now. The patient is neither suicidal nor homicidal and does not require [facility] admission. Psychiatry is signing off at this time, but can be reconsulted in the event if any significant changes in the patient's treatment. When he is discharged, he can follow up with his medical providers at [facility] specifically his PCP, Dr. Naya Sherman. [id number]/[facility] #: [id number] MTDKellie
[2019-04-10] MEDS: Azithromycin IV(*) 250 MG in NS 0.9% 250 ML* 250 ML IVPB SCH (16:48)
[2019-04-10] MEDS: Acetaminophen TAB* 325 MG PO PRN ×2 (16:48→23:07)
[2019-04-10] MEDS: Benzonatate CAP* 100 MG PO PRN (16:48)
[2019-04-10] MEDS: Enoxaparin(*) 40 MG/0.4 ML SYR SUBCUT SCH (16:48)
[2019-04-10] MEDS: DULoxetine DR CAP* 20 MG CAP.DR PO SCH (16:48)
--- NOTE | 2019-04-10 17:57 | ECHO ---
*[facility]* [place] [address] Fax #: [phone] Transthoracic Echocardiogram Patient: Jose Whitlock : 1960 Study Date: 04/10/2019 Age: 58 Gender: M HR: 103 bpm Height: 70.1 in /178 cm BSA: 1.78 m^2 Weight: 142 lb /64.5 kg BMI: 20.4 kg/m^2 *Keyboard Operator: Jenny Lee *Referring Physician: * Britany Catalan *Reading Physician: * Arvind Elam MD Indications: SOB. History: Severe anxiety. COPD, ETOH. Atrial fibrillation. Risk factors: Current tobacco use. Conclusions Summary: - Left ventricle: Systolic function is normal. The estimated ejection fraction is 60-65%. - Right ventricle: Systolic function is low normal. - Mitral valve: There is trace regurgitation. - Pericardium, extracardiac: A small pericardial effusion is identified anterior to the heart and at the apex. There is no evidence of hemodynamic compromise. Study data: Transthoracic echocardiogram. Procedure: Transthoracic echocardiography was performed. Image quality was suboptimal. The study was technically limited due to COPD and Smoking history. The parasternal window was low, thus no M-mode measurements were recorded. Intravenous Definity , 2 mlswas administered. Complete 2D, spectral Doppler, and color flow Doppler. Location: Bedside. Patient status: Inpatient. Patient room number: 447-2. No prior study is available for comparison. Study status: Routine. Rhythm: Tachycardia. Findings Left ventricle: The cavity size is normal. Wall thickness is normal. Systolic function is normal. The estimated ejection fraction is 60-65%. Wall motion is normal; there are no regional wall motion abnormalities. Left ventricular diastolic function parameters are normal. Right ventricle: Not well visualized. Wall thickness is mildly increased. Systolic function is low normal. Ventricular septum: The ventricular septum is normal. Left atrium: The atrium is normal in size. Right atrium: Not well visualized. Mitral valve: The valve is structurally normal. There is no evidence of stenosis. There is trace regurgitation. Aortic valve: Not well visualized. There is no evidence of stenosis. There is no significant regurgitation. Tricuspid valve: Not well visualized. There is no evidence of stenosis. There is trace regurgitation. Pulmonic valve: Not well visualized. There is no evidence of stenosis. There is no significant regurgitation. Pericardium: A small pericardial effusion is identified anterior to the heart and at the apex. There is no evidence of hemodynamic compromise. Pulmonary arteries: Systolic pressure can not be accurately estimated. Systemic veins: Inferior vena cava: The vessel is normal in size. There is (>= 50%) respiratory change in the IVC dimension. Pulmonary veins: Not well visualized. Measurements Left ventricle Value Ref Right ventricle Value Ref CELESTE, SMM (L) 3.3 cm 4.2 - 5.8 AW thickness, ED (H) 3.9 cm 0.1 - 0.5 ESD, SMM 2.9 cm 2.5 - 4.0 CELESTE minor ax, A4C 3.8 cm --------- FS, SMM (L) 13 % 25 - 43 Mid-wall FS, SMM (L) 5 % 14 - 22 Left atrium Value Ref PW, ED SMM 1.0 cm 0.6 - 1.0 LA ID 3.1 cm --------- IVS/PW, ED SMM 1.14 --------- Vol/bsa, ES, 2-p (L) 13 ml/m^2 16 - 34 PW/ID ratio, ED 0.31 --------- SMM Aortic valve Value Ref Rel thickness, ED (H) 0.62 0.24 - Peak v, S 0.82 m/sec --------- SMM 0.42 VTI, S 15.2 cm --------- Mass, SMM 107 g 88 - 224 Peak grad, S 3.0 mm Hg --------- Mass/bsa, SMM 60 g/m^2 49 - 115 PHT 2 ms --------- Mass/ht, SMM 60 g/m 52 - 126 LVOT/AV, VTI ratio 1.18 --------- Mass/ht^2.7, SMM 22 g/m^2.7 --------- CELESTE/bsa, SMM 1.8 cm/m^2 --------- Mitral valve Value Ref ESD/bsa, SMM 1.6 cm/m^2 --------- Peak E 0.77 m/sec --------- Peak A 0.89 m/sec --------- LVOT Value Ref Peak grad, D 2.3 mm Hg --------- Peak lyn, S 0.66 m/sec --------- Peak E/A ratio 0.86 --------- VTI, S 17.9 cm --------- Peak grad, S 2 mm Hg --------- Pulmonic valve Value Ref Mean grad, S 1 mm Hg --------- Peak v, S 0.93 m/sec --------- Peak grad, S 3.0 mm Hg --------- Ventricular septum Value Ref IVS, ED SMM (H) 1.2 cm 0.6 - 1.0 Legend: (L) and (H) viktor values outside specified reference range. Prepared and electronically signed by Arvind Elam MD 04/10/2019 17:56
[2019-04-10] MEDS: Nicotine Patch Removal NOTE PATCH OFF SCH (20:48)
[2019-04-11] MEDS: Albuterol/Ipratropium NEB.SOL* Albuterol 2.5 MG/Ipratropium 0.5 MG 3 ML INH SCH ×3 (01:10→13:22)
[2019-04-11] MEDS: guaiFENesin/CODIENE 100mg/10mg 5 ML UDC PO PRN (03:10)
[2019-04-11] MEDS: methylPREDNISolone SOD 40 MG* 1 ML VIAL IV SCH ×2 (03:30→12:48)
[2019-04-11] MEDS: Tiotropium Brom/Olodaterol MDI INH SCH (07:10)
[2019-04-11] MEDS: DULoxetine DR CAP* 20 MG CAP.DR PO SCH (09:24)
[2019-04-11] MEDS: Benzonatate CAP* 100 MG PO PRN (09:24)
[2019-04-11 13:42] VITALS: BP 141/82
--- NOTE | 2019-04-12 00:22 | DS ---
ADDENDUM NOW INCLUDED ON THIS REPORT CC: Dr. Smith; Dr. Naya Sherman; Paola Novak NP * DISCHARGE SUMMARY: DATE OF ADMISSION: 04/08/19 DATE OF DISCHARGE: 04/11/19 PRIMARY CARE PROVIDERS: Dr. Naya Sherman; Paola Novak NP, [facility]. DISPOSITION AT DISCHARGE: Home. CONDITION ON DISCHARGE: Stable. DISCHARGE DIAGNOSES: 1. Acute hypoxemic respiratory failure due to chronic obstructive pulmonary disease exacerbation. 2. An episode of chest pain with troponin of 0.04 likely due to a demand ischemia. 3. Exacerbation of anxiety in patient with history of bipolar disorder. SECONDARY DIAGNOSES: 1. History of chronic obstructive pulmonary disease. 2. History of bipolar disease. CONSULTATIONS DURING THE HOSPITAL STAY: Included Dr. Chávez from Psychiatry. MEDICATIONS AT DISCHARGE: Include: 1. Albuterol inhaler 2 inhalations every 4 hours p.r.n. 2. DuoNeb nebulizers every 4 hours p.r.n. 3. Azithromycin 250 mg daily for the next 2 days, then stop. 4. Tessalon Perles 100 mg b.i.d. p.r.n. 5. Cymbalta 20 mg daily. 6. Prednisone taper 60 mg daily for 2 days, then 40 mg daily for 2 days, then 20 mg daily for 2 days, then 10 mg daily for 2 days, then stop. 7. Stiolto Respimat 2 puffs daily. LABORATORY DATA AND STUDIES PERFORMED DURING THE HOSPITAL STAY: Included: On , sodium of 140, potassium of 4.5, chloride 105, carbon dioxide 29, BUN 10 , creatinine 0.86. White blood cell count of 6.4, hemoglobin of 14.8, hematocrit of 43, and platelets of 203. Transthoracic echocardiogram obtained on 04/10/19 showed EF of 60% to 65% with systolic function low normal with trace mitral regurgitation and small pericardial effusion. The patient's CT angiogram of the chest obtained at admission, impression: "Technically limited study. The main pulmonary arteries demonstrate no evidence of pulmonary embolus. No evidence of aortic dissection is noted. Small mediastinal lymph nodes and right hilar lymph nodes are noted." The lymph nodes were noted to be at 0.7 and 1.4 cm. HOSPITALIZATION COURSE: Jose Whitlock is a 58-year-old male with history of bipolar disease, on disability due to that, who has history of smoking a pack per day until his admission to the hospital. The patient presented in acute hypoxemic respiratory failure, requiring a fair amount of oxygen. He was diagnosed with COPD exacerbation and his CTA of the chest did not show any other marked abnormalities apart from lymphadenopathy. He was admitted to the hospital and treated with parenteral steroids as well as oxygen supplementation. He had episodes of respiratory distress with anxiety that would resolve after a dose of benzodiazepines were used in combination with nebulizer treatments and coaching. The patient was seen by Dr. Chávez due to his anxiety issues and Dr. Chávez noted that the patient has not been on medication for his bipolar disease and he recommended duloxetine to be started, which the patient agreed with. By the time of discharge, the patient actually was able to be taken off oxygen on day of discharge. He ambulated in the room air with oxygen saturation of 91% . At that point, he was present and comfortable with no further evidence of episodes of hypoxemia. The patient is being set up with the nebulizer machine at home. He is going to be finishing his course of p.o. azithromycin at home. We also started him on long-acting inhalers and short-acting albuterol. He is recommended to follow up with his primary care provider in 4 to 7 days. PHYSICAL EXAM AT THE TIME OF DISCHARGE: Blood pressure of 133/78, heart rate of 95 and regular, respiratory rate 20, oxygen saturation 91% on room air, temperature 97.3. General: The patient is a very pleasant 58-year-old male who is in no acute distress. The patient is alert and oriented x3. HEENT: Head: Atraumatic, normocephalic. Eyes: Pupils are equal and reactive to light and accommodation. Oropharynx clear. Mucosa moist. Neck: Supple. No JVD. No bruits bilaterally. Cardiovascular: Regular rate and rhythm. No murmur. Respiratory: Distant breath sounds bilaterally with faint wheezes in bilateral bases. Abdomen: Soft, nontender. Bowel sounds present in all 4 quadrants. Extremities: There is no edema. Pulses +2 bilaterally. No clubbing or cyanosis. Psychiatric Evaluation: Pleasant and cooperative with evaluation with no evidence of anxiety or depression. Please also note that the patient has had episode of respiratory distress noted on 04/09/19 and at that point, he had a left-sided chest pain. At this point, his EKG did not show any acute abnormalities. Transthoracic echocardiogram was performed and did not show any wall motion abnormalities and his troponins were at 0.04 repeatedly. At this point, it is likely demand ischemia and no further cardiac workup was necessary. The patient is being discharged home today. Recommendation to follow up with his primary care provider as mentioned above. TIME SPENT: Approximately 45 minutes was spent on the patient's discharge. ADDENDUM: After discussion with the pharmacist, apparently the patient's insurance does not cover any combination inhalers. We are also unable to give the patient DuoNeb inhalers. At this point, he is going to be placed on albuterol nebulizers on as needed basis, albuterol inhaler on a p.r.n. basis, as well as Spiriva one inhalation daily, Flovent 220 mcg two inhalations b.i.d. That will replace the Stiolto that the patient is not going to be able to get. [id number]/[facility] #: [id number] Hussein [id number]/[facility] #: [id number] SUDHA
--- NOTE | 2019-04-12 00:47 | DS ---
DISCHARGE SUMMARY: ADDENDUM: After discussion with the pharmacist, apparently the patient's insurance does not cover any combination inhalers. We are also unable to give the patient DuoNeb inhalers. At this point, he is going to be placed on albuterol nebulizers on as needed basis, albuterol inhaler on a p.r.n. basis, as well as Spiriva 1 inhalation daily, Flovent 220 mcg 2 inhalations b.i.d. That will replace the Stiolto that the patient is not going to be able to get. [id number]/[facility] #: [id number] MTDD
== END 2019-04-11 15:00 | disposition home or self-care (01) | DRG 190 ==
LOC: ED 08:29 → MEDTELE 15:28 → OBSVTOIN 04-09 09:48
PROVIDERS: ADMIT Hospitalist; ATTEND Internal Medicine
DX: J44.1 Chronic obstructive pulmonary disease with (acute) exacerbation (principal); J96.01 Acute respiratory failure with hypoxia; I24.8 Other forms of acute ischemic heart disease; I31.3 Pericardial effusion (noninflammatory); F31.9 Bipolar disorder, unspecified; F41.9 Anxiety disorder, unspecified; F17.210 Nicotine dependence, cigarettes, uncomplicated; R00.0 Tachycardia, unspecified; I34.0 Nonrheumatic mitral (valve) insufficiency; F50.9 Eating disorder, unspecified; R07.9 Chest pain, unspecified; Z79.899 Other long term (current) drug therapy; Z28.21 Immunization not carried out because of patient refusal; Z88.8 Allergy status to other drugs, medicaments and biological substances; Z91.030 Bee allergy status; Z91.410 Personal history of adult physical and sexual abuse; Z68.20 Body mass index [BMI] 20.0-20.9, adult
CPT/HCPCS: 36415; 71046; 71275; 80053; 83880; 84443; 84484; 85025; 86140; 93005; 93306; 94640; 96365; 96372; 99284; A9270-GY; C8929; G0378; J0456; J1650; J2270; J2920; J3490; J3535; J7512; Q9967

== ENCOUNTER 2021-02-24 09:56 | Observation (INO) ==
[2021-02-24 11:10] LABS: ABS Basophils 0.1 10^3/ul (0-0.2); ABS Eosinophils 0.2 10^3/ul (0-0.6); ABS Lymphocytes 1.8 10^3/ul (1.0-4.8); ABS Monocytes 0.6 10^3/ul (0-0.8); ABS Neutrophils 4.8 10^3/ul (1.5-7.7); Eosinophil % 2.2 %; Hematocrit 44 % (42-52); Lymphocyte % 24.3 %; Mean Corpuscular HGB Conc 34 g/dL (31-36); Mean Corpuscular Hemoglobin 32 pg (27-31); Mean Corpuscular Volume 96 fL (80-94); Mean Platelet Volume 7.1 fL (7.4-10.4); Nucleated Red Blood Cells % 0.1; Platelet Count 265 10^3/uL (150-450); Red Blood Count 4.62 10^6 /uL (4.18-5.48); Red Cell Distribution Width 14 % (10-15); White Blood Count 7.4 10^3/uL (3.5-10.8)
[2021-02-24 11:43] LABS: Albumin 3.9 g/dL (3.2-5.2); Albumin/Globulin Ratio 1.4 (1-3); Calcium 9.4 mg/dL (8.6-10.3); Globulin 2.8 g/dL (2-4); Potassium 3.8 mmol/L (3.5-5.0); Total Bilirubin 0.4 mg/dL (0.2-1.0); Total Protein 6.7 g/dL (6.4-8.9); eGFR CKD-EPI 101.6 (>60)
[2021-02-24] MEDS ORDERED: Albuterol HFA INHALER 8 gm MDI INH PRN (14:24)
[2021-02-24] MEDS ORDERED: Nicotine PATCH 21 MG/24 HR PATCH TRANSDERM PRN (14:58)
[2021-02-24] MEDS: Enoxaparin 40 MG/0.4 ML SYR SUBCUT SCH (15:07)
[2021-02-24] MEDS ORDERED: Nicotine GUM 4MG FRUIT FLAVOR PO PRN (20:04)
[2021-02-24] MEDS ORDERED: Nicotine GUM 4MG FRUIT FLAVOR PO ONE (20:08)
[2021-02-25 06:10] LABS: ABS Basophils 0.1 10^3/ul (0-0.2); ABS Eosinophils 0.3 10^3/ul (0-0.6); ABS Lymphocytes 2.5 10^3/ul (1.0-4.8); ABS Monocytes 0.7 10^3/ul (0-0.8); ABS Neutrophils 4.1 10^3/ul (1.5-7.7); Eosinophil % 3.4 %; Hematocrit 42 % (42-52); Hemoglobin 14.2 g/dL (14.0-18.0); Lymphocyte % 32.6 %; Mean Corpuscular HGB Conc 34 g/dL (31-36); Mean Corpuscular Hemoglobin 32 pg (27-31); Mean Corpuscular Volume 96 fL (80-94); Mean Platelet Volume 6.9 fL (7.4-10.4); Platelet Count 239 10^3/uL (150-450); Red Cell Distribution Width 14 % (10-15); White Blood Count 7.7 10^3/uL (3.5-10.8)
[2021-02-25 06:29] LABS: Calcium 9.1 mg/dL (8.6-10.3); HDL Cholesterol 39.9 mg/dL; Potassium 4.1 mmol/L (3.5-5.0); eGFR CKD-EPI 101.6 (>60)
[2021-02-25] MEDS ORDERED: SPIRIVA Respimat (tiotropium) 2.5 mcg/inh Inhaler INH SCH (09:00)
[2021-02-25 09:19] LABS: Folate 19.25 ng/mL (5.90-24.80)
[2021-02-25 11:24] LABS: Rapid COVID-19 Molecular Undetected (Undetected)
[2021-02-25 11:25] VITALS: BP 113/78
[2021-02-25] MEDS ORDERED: Regadenoson 0.4 MG/5 ML SYRINGE ONE (12:37)
[2021-02-25] MEDS ORDERED: Aminophylline 25 MG/ML VIAL ONE (12:37)
[2021-02-25] MEDS: Enoxaparin 40 MG/0.4 ML SYR SUBCUT SCH (14:38)
[2021-02-26 19:22] LABS: Anaplasma phagocytophilum Negative (Negative); B. miyamotoi PCR, B Negative (Negative); Babesia divergens/MO-1 Negative (Negative); Babesia ducani Negative (Negative); Ehrlichia chaffeensis Negative (Negative); Ehrlichia ewingii/canis Negative (Negative); Ehrlichia muris eauclairensis Negative (Negative)
== END 2021-02-25 15:50 | disposition home or self-care (01) ==
LOC: ED 09:56 → EDHOLD 09:56 → MEDTELE 15:23
PROVIDERS: ADMIT Internal Medicine; ATTEND Internal Medicine